=== PATIENT | female | born 1985 | race Caucasian/White ===

== ENCOUNTER 2021-09-12 19:10 | Inpatient (IN) ==
[2021-09-12 15:31] LABS: Bacteria,Urine Few per hpf (None-Few); Bilirubin,Urine Negative (Negative); Blood,Urine Negative (Negative); Clarity,Urine Turbid (Clear); Color,Urine Light-Yellow (Yellow); Glucose,Urine (UA) Normal (Normal); Ketones,Urine Negative (Negative); Leukocyte Esterase,Urine Trace (Negative); Mucus,Urine Few per lpf (None-Few); Nitrite,Urine Negative (Negative); PH,Urine 6.5 pH Units (5.0-8.0); Protein,Urine Negative (Neg-Trace); RBC,Urine 0-3 per hpf (0-3); Specific Gravity,Urine 1.011 (1.010-1.025); Squamous Epithelial Cell,Urine Moderate per hpf (None-Few); Urobilinogen,Urine Normal (Normal)
[2021-09-12 16:08] LABS: Trichomonas DNA Not Detected (Not Detect)
[2021-09-12 16:09] LABS: Candida DNA Not Detected (Not Detect); Gardnerella DNA Not Detected (Not Detect)
[~2021-09-12 19:10] MED LIST: *HR* Nalbuphine 10 MG/ML AMPUL IV PRN; FLU Vac QV 21-22 (6Month+)/PF 0.5 ML SYRINGE IM ONE; Famotidine 20 MG/2 ML VIAL IVP PRN; Metoclopramide 10 MG/2 ML VIAL IVP PRN; Morphine Sulfate 2 MG/ML SYRINGE SQ STA; Naloxone 0.4 MG/ML INJ IVP PRN; Ondansetron 4 MG/2 ML VIAL IVP PRN; Penicillin G Potassium 5,000,000 UNIT in 0.9 % Sodium Chloride Mini Bag 100 ML IVPB ONE
[2021-09-12] MEDS ORDERED: Ringers Solution, Lactated 1,000 ML IVC SCH (19:15)
[2021-09-12 20:36] LABS: Amphetamine Screen,Urine Negative ng/mL (Cutoff=1000); Barbiturate Screen,Urine Negative ng/mL (Cutoff=200); Benzodiazepines Screen,Urine Negative ng/mL (Cutoff=200); Cannabinoid Screen,Urine Negative ng/mL (Cutoff = 50); Cocaine Screen,Urine Negative ng/mL (Cutoff= 300); Opiate Screen,Urine Negative ng/mL (Cutoff=300); Phencyclidine Screen,Urine Negative ng/mL (Cutoff=25)
[2021-09-12 20:39] LABS: Basophils % 0.2 %; Eosinophils % 0.3 %; Hematocrit 33.3 % (35.3-44.9); Hemoglobin 11.4 g/dL (11.5-15.4); Immature Granulocytes % 0.4 % (0-4); Lymphocytes # 1.6 K/mcL (0.6-4.6); Lymphocytes % 16.4 %; Mean Corpuscular HGB Conc 34.2 g/dL (31.6-35.5); Mean Corpuscular Hemoglobin 29.4 pg (28.0-33.3); Mean Corpuscular Volume 85.8 fL (83.0-100.0); Mean Platelet Volume 11.7 fL (9.4-12.4); Monocytes # 0.7 K/mcL (0.0-1.3); Monocytes % 6.8 %; Neutrophils # 7.3 K/mcL (1.6-8.9); Platelet Count 198 K/mcL (140-400); Red Blood Count 3.88 M/mcL (3.82-4.97); Red Cell Distribution Width 12.9 % (11.5-14.5); Segmented Neutrophils % 75.9 %; White Blood Count 9.6 K/mcL (4.3-11.1)
[2021-09-12] MEDS ORDERED: Penicillin G Potassium 2,500,000 UNIT/105 ML MLS IVPB SCH (23:00)
== END 2021-09-12 22:42 | disposition home or self-care (01) | DRG 831 ==
LOC: 1NENULAB
PROVIDERS: ADMIT Obstetrics & Gynecology; ATTEND Obstetrics & Gynecology

== ENCOUNTER 2021-09-14 18:41 | Inpatient (IN) ==
[2021-09-14 18:28] LABS: Basophils % 0.2 %; Eosinophils % 0.2 %; Hematocrit 34.8 % (35.3-44.9); Hemoglobin 12.1 g/dL (11.5-15.4); Immature Granulocytes % 0.3 % (0-4); Lymphocytes # 0.9 K/mcL (0.6-4.6); Lymphocytes % 13.4 %; Mean Corpuscular HGB Conc 34.8 g/dL (31.6-35.5); Mean Corpuscular Hemoglobin 29.7 pg (28.0-33.3); Mean Corpuscular Volume 85.5 fL (83.0-100.0); Mean Platelet Volume 11.5 fL (9.4-12.4); Monocytes # 0.6 K/mcL (0.0-1.3); Monocytes % 9.3 %; Platelet Count 204 K/mcL (140-400); Red Blood Count 4.07 M/mcL (3.82-4.97); Red Cell Distribution Width 12.8 % (11.5-14.5); Segmented Neutrophils % 76.6 %; White Blood Count 6.6 K/mcL (4.3-11.1)
[2021-09-14 18:31] LABS: Amphetamine Screen,Urine Negative ng/mL (Cutoff=1000); Barbiturate Screen,Urine Negative ng/mL (Cutoff=200); Benzodiazepines Screen,Urine Negative ng/mL (Cutoff=200); Cannabinoid Screen,Urine Negative ng/mL (Cutoff = 50); Cocaine Screen,Urine Negative ng/mL (Cutoff= 300); Opiate Screen,Urine Negative ng/mL (Cutoff=300); Phencyclidine Screen,Urine Negative ng/mL (Cutoff=25)
[~2021-09-14 18:41] MED LIST changes: -FLU Vac QV 21-22 (6Month+)/PF 0.5 ML SYRINGE IM ONE; +Lidocaine 1% 20 ML MDV INFILT PRN; -Morphine Sulfate 2 MG/ML SYRINGE SQ STA; +Oxytocin 20 units/ LR 1000 mL 20 UNIT/1,000 ML BAG IVC SCH; -Penicillin G Potassium 5,000,000 UNIT in 0.9 % Sodium Chloride Mini Bag 100 ML IVPB ONE; +Ringers Solution, Lactated 1,000 ML IVC SCH
[2021-09-14] MEDS ORDERED: EPHEDrine 50 MG/ML VIAL IVP PRN (18:57)
[2021-09-14] MEDS ORDERED: Epidural Premix (fent/bupiv) 110 ML EP SCH (19:00)
[2021-09-14 19:10] LABS: Influenza A PCR Negative (Negative); Influenza B PCR Negative (Negative); Resp. Syncytial Virus PCR Negative (Negative)
[2021-09-14 19:33] LABS: SARS-CoV-2 by PCR (In House) Positive (Negative)
[2021-09-15] MEDS ORDERED: Lanolin 7 G OINT...G. TP PRN (02:34)
[2021-09-15] MEDS ORDERED: Benzocaine/Menthol 56 GM AEROSOL SPRAY TP PRN (02:34)
[2021-09-15] MEDS ORDERED: Ondansetron ODT 4 MG TAB.RAPDIS SL PRN (02:34)
[2021-09-15] MEDS ORDERED: Oxytocin 20 units/ LR 1000 mL 20 UNIT/1,000 ML BAG IVC SCH (02:34)
[2021-09-15] MEDS: Ibuprofen 600 MG TABLET PO SCH ×3 (02:49→21:22)
[2021-09-15] MEDS: Acetaminophen 325 MG TABLET PO SCH ×3 (02:49→21:22)
[2021-09-15 05:15] LABS: Basophils % 0.2 %; Hematocrit 31.2 % (35.3-44.9); Hemoglobin 10.6 g/dL (11.5-15.4); Immature Granulocytes % 0.3 % (0-4); Lymphocytes # 0.9 K/mcL (0.6-4.6); Mean Corpuscular Hemoglobin 29.3 pg (28.0-33.3); Mean Corpuscular Volume 86.2 fL (83.0-100.0); Mean Platelet Volume 11.7 fL (9.4-12.4); Monocytes # 0.7 K/mcL (0.0-1.3); Monocytes % 7.4 %; Neutrophils # 8.2 K/mcL (1.6-8.9); Platelet Count 157 K/mcL (140-400); Red Blood Count 3.62 M/mcL (3.82-4.97); Red Cell Distribution Width 12.8 % (11.5-14.5); Segmented Neutrophils % 83.1 %; White Blood Count 9.8 K/mcL (4.3-11.1)
[2021-09-15] MEDS: Prenatal Vit/FA 1 EACH TABLET PO SCH (10:17)
[2021-09-15 20:25] VITALS: BP 113/73; PULSE 81; TEMP 98.3; O2SAT 97
[2021-09-16] MEDS: Acetaminophen 325 MG TABLET PO SCH ×3 (02:57→14:48)
[2021-09-16] MEDS: Ibuprofen 600 MG TABLET PO SCH ×2 (02:58→09:18)
[2021-09-16] MEDS: Prenatal Vit/FA 1 EACH TABLET PO SCH (09:18)
== END 2021-09-16 15:50 | disposition home or self-care (01) | DRG 560 ==
LOC: 1NENULAB → 1NENUOBS 09-15 02:15
PROVIDERS: ADMIT Advanced Practice Midwife; ATTEND Advanced Practice Midwife